=== PATIENT | male | born 1955 | race American Indian/Alaskan Native ===

== ENCOUNTER 2018-12-15 19:26 | Emergency (ER) | payer MEDICAID ==
[2018-12-15 19:31] VITALS: BMI 28.3
[2018-12-15] MEDS ORDERED: Levalbuterol 0.63 MG/3 ML Inhal Soln UD IH STA (19:41)
[2018-12-15 19:45] VITALS: RESP 18; TEMP 98.1
--- NOTE | 2018-12-15 19:45 | ED PDOC ---
Arrival/HPI - General Chief Complaint: High Blood Pressure Time Seen by Provider: 12/15/18 19:31 Historian: Patient - History of Present Illness Narrative History of Present Illness (Text): 12/15/18 19:45 63 year old male, whose past medical history includes diabetes, heroin abuse and COPD, presents to the emergency department by police department for medical clearance for incarceration. Patient is complaining of elevated blood pressure and wheezing. Patient reports he takes clonidine for his hypertension but can't recall when he last took it. Patient denies any fever, chills, chest pain, shortness of breath, nausea, vomiting, diarrhea, urinary symptoms, back pain, neck pain, headache, dizziness, or any other complaints. Symptom Onset: Gradual Symptom Course: Unchanged Activities at Onset: Light Past Medical History - Provider Review Nursing Documentation Reviewed: Yes - Infectious Disease Hx of Infectious Diseases: None - Cardiac Hx Hypertension: Yes - Psychiatric Hx Substance Use: Yes Other/Comment: substance use - Anesthesia Hx Anesthesia: No Family/Social History - Physician Review Nursing Documentation Reviewed: Yes Family/Social History: No Known Family HX Smoking Status: Never Smoked Hx Alcohol Use: No Hx Substance Use: Yes Substance used: heroine Allergies/Home Meds Allergies/Adverse Reactions: Allergies No Known Allergies Allergy (Verified 12/15/18 19:30) Home Medications: Home Meds Medication Instructions Recorded Confirmed cloNIDine [Catapres] 1 tab PO DAILY 12/15/18 12/15/18 Review of Systems - Physician Review All systems were reviewed & negative as marked: Yes - Review of Systems Constitutional: absent: Fevers, Other (chills) Respiratory: Wheezing. absent: SOB Cardiovascular: absent: Chest Pain Gastrointestinal: absent: Diarrhea, Nausea, Vomiting Genitourinary Male: absent: Dysuria, Frequency, Hematuria Musculoskeletal: absent: Back Pain, Neck Pain Neurological: absent: Headache, Dizziness Physical Exam - Physical Exam Narrative Physical Exam (Text): Gen: VS reviewed, alert, well developed, well nourished, nontoxic, mild distress. ENT: normal pharynx. Eye: EOMI, PERRL. Neck: no JVD, supple, no adenopathy. CV: regular rate, regular rhythm, no rubs, no murmur, no gallops, S1, S2, pulses equal and strong. Pulm: no distress, bilateral expiratory wheeze, no rhonchi, breath sounds equal, no rales. Abd: soft, nontender, no guarding, no rebound, no rigidity, normal bowel sounds. Ext: no edema. Skin: good color, no rash, no cyanosis. Psych: responds appropriately to questions, normal affect. Neuro: oriented x 3, CN2-12 intact grossly, motor intact, sensation intact. Vital Signs Reviewed: Yes Vital Signs Temp Pulse Resp BP Pulse Ox 12/15/18 19:44 98.1 F 66 18 170/83 H 96 Temperature: Afebrile Blood Pressure: Hypertensive Pulse: Regular Respiratory Rate: Normal Appearance: Positive for: Well-Appearing, Non-Toxic, Comfortable Pain Distress: None Mental Status: Positive for: Alert and Oriented X 3 Medical Decision Making ED Course and Treatment: 12/15/18 19:45 Impression: 63 year old male presents complaining of elevated blood pressure and medical clearance for incarceration. Plan: -- catapres, Xopenex, prednisone tab -- Reassess and disposition Progress Notes: 12/15/18 21:19 patient seen for wheezing and hypertension. patient has a hx of copd and presented with a mild exacerbation. wheezing improved/resolved with prednisone and a single nebulizer treatment. blood pressure improved. patient is stable for discharge. - Medication Orders Current Medication Orders: Clonidine HCl (Catapres) 0.2 mg PO STAT STA Stop: 12/15/18 19:42 Levalbuterol HCl (Xopenex) 0.63 mg IH ONCE STA Stop: 12/15/18 19:42 Prednisone (Prednisone Tab) 60 mg PO STAT ONE Stop: 12/15/18 19:41 - Scribe Statement The provider has reviewed the documentation as recorded by the Arley Felipe Provider Scribe Attestation: All medical record entries made by the Arley were at my direction and personally dictated by me. I have reviewed the chart and agree that the record accurately reflects my personal performance of the history, physical exam, medical decision making, and the department course for this patient. I have also personally directed, reviewed, and agree with the discharge instructions and disposition. Disposition/Present on Arrival - Present on Arrival Any Indicators Present on Arrival: No History of DVT/PE: No History of Uncontrolled Diabetes: No Urinary Catheter: No History of Decub. Ulcer: No History Surgical Site Infection Following: None - Disposition Have Diagnosis and Disposition been Completed?: Yes Diagnosis: Hypertension, COPD exacerbation Disposition: HOME/ ROUTINE Disposition Time: 21:22 Patient Plan: Discharge Patient Problems: Current Active Problems Problem Status Onset Hypertension Acute COPD exacerbation Acute Condition: STABLE Additional Instructions: the patient is discharged with two medications: -take clonidine 0.2mg twice daily for hypertension -take prednisone 40mg daily for 5 days to treat mild COPD exacerbation. Prescriptions: cloNIDine [Catapres] 0.2 mg PO BID #60 tab Prednisone [Deltasone] 20 mg PO DAILY 5 Days #10 tablet Forms: [employer] (Hungarian), WORK NOTE
[2018-12-15 21:48] VITALS: BP 155/81; PULSE 72; O2SAT 100
== END 2018-12-15 21:35 ==
LOC: ED 19:26
DX: J44.1 Chronic obstructive pulmonary disease with (acute) exacerbation (principal); I10 Essential (primary) hypertension; E11.9 Type 2 diabetes mellitus without complications